=== PATIENT | male | born 1990 | race Hispanic/Latino ===

== ENCOUNTER 2020-09-21 21:37 | Emergency (ER) | payer SELFPAY ==
[2020-09-21 21:58] LABS: APPEARANCE,URINE Clear (CLEAR); BILIRUBIN,URINE Negative (NEGATIVE); GLUCOSE, URINE (UA) Negative (NEGATIVE); KETONES,URINE 15 mg/dL (NEGATIVE); LEUKOCYTE ESTERASE ,URINE Large (NEGATIVE); NITRATE,URINE Negative (NEGATIVE); OCCULT BLOOD,URINE Large (NEGATIVE); PROTEIN,URINE POS 1+ mg/dL (NEGATIVE); UROBILINOGEN,URINE 0.2 mg/dL (0.2-1.0)
[2020-09-21 22:00] LABS: COLOR,URINE Orange (YELLOW)
[2020-09-21 22:07] LABS: RBC,URINE 26-50 /HPF (0-1)
[2020-09-21 22:08] LABS: BACTERIA,URINE Rare /HPF (None Seen)
[2020-09-21 22:09] LABS: SQUAMOUS EPITHELIAL CELL,UR Rare /HPF (0-2)
[2020-09-21] MEDS ORDERED: CEFTRIAXONE SODIUM 500 MG VIAL ONE (22:52)
[2020-09-21] MEDS ORDERED: LIDOCAINE HCL-MPF 1% 2ML VIAL ONE (22:52)
[2020-09-21] MEDS ORDERED: AZITHROMYCIN 250 MG TABLET PO ONE (22:53)
== END 2020-09-21 23:04 | disposition home or self-care (01) ==
LOC: EDH 21:37
DX: N39.0 Urinary tract infection, site not specified (principal); F14.10 Cocaine abuse, uncomplicated; F10.10 Alcohol abuse, uncomplicated
CPT/HCPCS: 81001; 87088; 87486; 87797; 96372; 99283; J0696; J3490